=== PATIENT | male | born 1945 | race Two or more races ===

== ENCOUNTER 2020-12-14 08:53 | Emergency (ER) | payer OTHER ==
[~2020-12-14] VITALS: Ht 172.7 cm; Wt 73.5 kg
[2020-12-14] MEDS ORDERED: SODIUM CHLORIDE 0.9% 1,000 ML IV ONE (09:15)
[2020-12-14 09:30] LABS: Basophils # (auto) 0 10 ^3/uL (0-0.2); Eosinophils # (auto) 0 10 ^3/uL (0-0.8); Eosinophils % (auto) 0.1 % (0.0-7.0); Lymphocytes # (auto) 0.8 10 ^3/uL (0.4-5.4); Monocytes # (auto) 0.6 10 ^3/uL (0-1.3); White Blood Cell 7.1 10^3/uL (4.4-10.8)
[2020-12-14 09:32] LABS: Basophils % (auto) 0.4 % (0.0-2.0); Hematocrit 34.9 % (41.0-53.0); Hemoglobin 11.3 g/dL (13.5-17.5); Lymphocytes % (auto) 11.1 % (10.0-50.0); Mean Corpuscular Hemoglobin 25.2 pg (28.0-32.0); Mean Corpuscular Hgb Conc. 32.3 g/dL (32.0-36.0); Monocytes % (auto) 8.5 % (0.0-12.0); Neutrophils # (auto) 5.6 10 ^3/uL (1.6-8.6); Neutrophils % (auto) 79.9 % (37.0-80.0); Red Blood Cells 4.48 10^6/uL (4.5-5.90); Red Cell Distribution Width 15.9 % (11.8-14.3)
[2020-12-14 09:52] LABS: Albumin 3.5 g/dL (3.4-5.0); Anion Gap 6 (5-15); Blood Urea Nitrogen 21 mg/dL (7-18); Calcium 8.1 mg/dL (8.5-10.1); Carbon Dioxide 23 mmol/L (21-32); Chloride 112 mmol/L (98-107); Glucose 118 mg/dL (74-106); Potassium 4.2 mmol/L (3.5-5.1); Sodium 141 mmol/L (136-145)
[2020-12-14 09:57] LABS: Alanine Aminotransferase 74 U/L (16-61); Alkaline Phosphatase 63 U/L (45-117); Aspartate Aminotransferase 85 U/L (15-37); BUN/Creatinine Ratio 13.9; Bilirubin, Total 1.1 mg/dL (0.2-1.0); GFR African American 58 mL/min; GFR Non-African American 48 mL/min; Total Protein 7.7 g/dL (6.4-8.2)
[2020-12-14 11:00] VITALS: BP 157/85
== END 2020-12-14 17:49 | disposition home or self-care (01) ==
LOC: EDBD 08:53 → ER 08:53
DX: G45.9 Transient cerebral ischemic attack, unspecified (principal); I10 Essential (primary) hypertension; R41.82 Altered mental status, unspecified; Z95.0 Presence of cardiac pacemaker
CPT/HCPCS: 36415; 70450; 71045; 80053; 84484; 85025; 93005; 96360; 99285; J7030